=== PATIENT | male | born 1950 | race Asian ===

== ENCOUNTER 2016-08-16 09:05 | Outpatient (CLI) | payer BC | END 2016-08-16 23:59 | disposition home or self-care (01) | LOC: US 09:05 | PROVIDERS: ATTEND Internal Medicine Interventional Cardiology | DX: I71.4 Abdominal aortic aneurysm, without rupture (principal) | CPT/HCPCS: 76770-TC ==

== ENCOUNTER 2017-09-22 07:57 | Outpatient (CLI) | payer BC ==
[2017-09-22 08:59] LABS: BASOPHILS % (AUTO) 0.6 % (0.0-2.0); EOSINOPHILS % (AUTO) 5.1 % (0.0-6.0); HEMATOCRIT 39 % (39-51); HEMOGLOBIN 12.6 g/dL (13.5-17.5); LYMPHOCYTES # (AUTO) 2.1 /CMM (0.8-4.8); LYMPHOCYTES % (AUTO) 29.4 % (20.0-44.0); MEAN CORPUSCULAR HGB CONC 32 g/dl (31.0-36.0); MEAN CORPUSCULAR VOLUME 68 fL (80-96); MONOCYTES # (AUTO) 0.4 /CMM (0.1-1.30); MONOCYTES % (AUTO) 5.8 % (2.0-12.0); NEUTROPHILS # (AUTO) 4.3 /CMM (1.8-8.9); NEUTROPHILS % (AUTO) 59.1 % (43.0-81.0); PLATELET COUNT (AUTO) 269 /CMM (150-450); RDW COEFFICIENT OF VARIATION 16.7 (11.5-15.0); RED BLOOD CELL COUNT(AUTO) 5.78 MIL/uL (4.5-6.0); WHITE BLOOD COUNT (AUTO) 7.3 K/uL (4.3-11.0)
[2017-09-22 09:10] LABS: APPEARANCE,URINE CLEAR (CLEAR); BILIRUBIN,URINE NEGATIVE (NEGATIVE); BLOOD, URINE NEGATIVE Ery/uL (NEGATIVE); COLOR,URINE YELLOW (YELLOW); KETONES,URINE NEGATIVE (NEGATIVE); LEUKOCYTE ESTERASE ,URINE NEGATIVE (NEGATIVE); NITRITE, URINE NEGATIVE (NEGATIVE); PH,URINE 5.5 (5.0-8.0); PROTEIN,URINE NEGATIVE (NEGATIVE); UGLUCOSE NEGATIVE (NEGATIVE); UROBILINOGEN,URINE 0.2 EU/dL (0.2)
[2017-09-22 09:19] LABS: ALBUMIN 4.4 g/dL (3.4-5.0); BILIRUBIN,TOTAL 1.2 mg/dL (0.2-1.0); CALCIUM, SERUM 9.6 mg/dL (8.5-10.1); CREATININE 1.1 mg/dL (0.6-1.3); POTASSIUM 4.4 mmol/L (3.5-5.1); TOTAL PROTEIN, SERUM 8.1 g/dL (6.4-8.2)
[2017-09-22 09:25] LABS: THYROID STIMULATING HORMONE 1.957 uIU/mL (0.358-3.74); URIC ACID 8.3 mg/dL (2.6-7.2)
[2017-09-22 10:24] LABS: EOSINOPHILS % (MANUAL) 6 % (0-4); LYMPHOCYTES % (MANUAL) 17 % (16-48); MONOCYTES % (MANUAL) 9 % (0-11.0); NEUTROPHILS % (MANUAL) 68 (42-76)
== END 2017-09-22 23:59 | disposition home or self-care (01) ==
LOC: LAB 07:57
PROVIDERS: ATTEND Legal Medicine
DX: M17.0 Bilateral primary osteoarthritis of knee (principal); M85.88 Other specified disorders of bone density and structure, other site; R79.89 Other specified abnormal findings of blood chemistry
CPT/HCPCS: 36415; 73562; 80053-TC; 80061-TC; 81000-TC; 82306; 84402-TC; 84439-TC; 84443-TC; 84550-TC; 85025-TC

== ENCOUNTER 2017-10-01 07:29 | Outpatient (CLI) | payer BC ==
[2017-10-01 09:32] LABS: IRON, SERUM 53 ug/dl (50-175); TOTAL IRON BINDING CAPACITY 276 ug/dl (250-450)
[2017-10-01 09:43] LABS: FERRITIN 380 ng/mL (8-388)
== END 2017-10-01 23:59 | disposition home or self-care (01) ==
LOC: LAB 07:29
PROVIDERS: ATTEND Legal Medicine
DX: D64.9 Anemia, unspecified (principal)
CPT/HCPCS: 36415; 82728-TC; 82746; 83540-TC

== ENCOUNTER 2019-02-28 05:08 | Inpatient (IN) | payer BC ==
[2019-02-28] VITALS (28 sets, daily range): BP systolic 61–158; BP diastolic 26–97
[~2019-02-28] VITALS: Ht 170.2 cm; Wt 74.8 kg
[2019-02-28] MEDS ORDERED: IODIXANOL 150 ML IV ONE (05:35)
[2019-02-28] MEDS ORDERED: ASPI-1169 PO (05:37)
[2019-02-28] MEDS ORDERED: CARV3.12 PO (05:37)
[2019-02-28] MEDS ORDERED: LOSA25TA27 PO (05:38)
[2019-02-28 05:45] LABS: BASOPHILS # (AUTO) 0.1 /CMM (0.0-0.2); BASOPHILS % (AUTO) 2.4 % (0.0-2.0); EOSINOPHILS % (AUTO) 11.3 % (0.0-6.0); HEMATOCRIT 40 % (39-51); HEMOGLOBIN 12.7 g/dL (13.5-17.5); LYMPHOCYTES # (AUTO) 1.3 /CMM (0.8-4.8); LYMPHOCYTES % (AUTO) 22.4 % (20.0-44.0); MEAN CORPUSCULAR HGB CONC 32 g/dl (31.0-36.0); MEAN CORPUSCULAR VOLUME 68 fL (80-96); MONOCYTES # (AUTO) 0.5 /CMM (0.1-1.30); MONOCYTES % (AUTO) 8.1 % (2.0-12.0); NEUTROPHILS # (AUTO) 3.1 /CMM (1.8-8.9); NEUTROPHILS % (AUTO) 55.8 % (43.0-81.0); PLATELET COUNT (AUTO) 195 /CMM (150-450); RED BLOOD CELL COUNT(AUTO) 5.85 MIL/uL (4.5-6.0); WHITE BLOOD COUNT (AUTO) 5.6 K/uL (4.3-11.0)
[2019-02-28] MEDS ORDERED: IV NS 0.9% 1,000 ML ONE (05:47)
[2019-02-28] MEDS ORDERED: VERAPAMIL HCL IV 5 MG/2 ML VIAL ONE (05:48)
[2019-02-28] MEDS ORDERED: HEPARIN SODIUM, PORCINE 5000 UNITS/1 ML VIAL ONE ×2 (05:48→07:31)
[2019-02-28] MEDS ORDERED: NITROGLYCERIN ICAR 1,000 MCG/10 ML VIAL ICAR ONE (05:49)
[2019-02-28 05:53] LABS: CALCIUM, SERUM 8.4 mg/dL (8.5-10.1); POTASSIUM 3.8 mmol/L (3.5-5.1)
[2019-02-28 06:05] LABS: BAND % (MANUAL) 1 % (0.0-5.0); BASOPHILS % (MANUAL) 1 % (0.0-2.0); EOSINOPHILS % (MANUAL) 9 % (0-4); LYMPHOCYTES % (MANUAL) 23 % (16-48); MONOCYTES % (MANUAL) 8 % (0-11.0); NEUTROPHILS % (MANUAL) 58 (42-76)
[2019-02-28] MEDS ORDERED: FENTANYL PF 100MCG/2ML AMPUL ONE (06:58)
[2019-02-28] MEDS ORDERED: MIDAZOLAM HCL 2 MG/2ML VIAL ONE (06:58)
[2019-02-28] MEDS ORDERED: HEPARIN SODIUM, PORCINE 1,000 UNIT/ML VIAL ONE ×2 (06:59)
[2019-02-28] MEDS ORDERED: LIDOCAINE HCL/PF 1% 30 ML SDV ONE (07:03)
[2019-02-28] MEDS ORDERED: ATOR80TA PO (07:24)
--- NOTE | 2019-02-28 08:40 | NUR ---
ICU/SOLE FILLER NOTE RECEIVED PT FROM CARDIAC COILED TUBING SUPERVISOR. PT ALERT, AWAKE, FOLLOWS COMMANDS. TR BAND IN PLACE, 11 CC AIR IN BAND. PT SINUS ON TELE, ON ROOM AIR, NO DISTRESS NOTED. ALL ORDERS REVIEWED. PT PENDING TRANSFER TO [facility] FOR CABG. WILL CONTINUE TO MONITOR AND CARE.
[2019-02-28] MEDS ORDERED: METOPROLOL SUCCINATE 25 MG TAB.SR.24H PO SCH (09:00)
[2019-02-28] MEDS ORDERED: ASPIRIN 81 MG TAB.CHEW PO SCH (09:00)
--- NOTE | 2019-02-28 09:15 | NUR ---
ICU/RN: 3ML AIR REMOVED, NO S/S OF BLEEDING NOTED.
[2019-02-28] MEDS ORDERED: IV NS 0.9% 500 ML IV ONE (09:30)
--- NOTE | 2019-02-28 09:35 | NUR ---
ICU/RN: 3ML AIR REMOVED, NO S/S OF BLEEDING NOTED.
--- NOTE | 2019-02-28 10:30 | NUR ---
ICU/RN: 3ML AIR REMOVED, NO S/S OF BLEEDING NOTED.
--- NOTE | 2019-02-28 11:00 | NUR ---
ICU/RN: 2ML AIR REMOVED, NO S/S OF BLEEDING NOTED. WILL REMOVE TR BAND
--- NOTE | 2019-02-28 11:15 | NUR ---
ICU/RN: TR BAND REMOVED. NO S/S OF BLEEDING NOTED. CLEAR TAGADERM APPLIED. INSTRUCTED PT REGARDING AFTERCARE. ALL QUESTIONS ANSWERED. WILL CONTINUE TO MONITOR. PULSES PRESENT, PALPABLE AND EQUAL.
--- NOTE | 2019-02-28 16:30 | NUR ---
ICU/RN: REPORT ENDORSED TO JUSTIN REYNOSO IN [facility]. AMBULANCE AT BEDSIDE TO TRANSFER PT FOR CABG. EXIT CARE DONE. MRSA SWAB SENT TO LAB. ALL BELONGINGS CHECKED AND FORM SIGNED. SKIN INTACT, NO PHOTOS NEEDED. REPORT ENDORSED TO EMT. RIGHT WRIST ASSESSED, NO S/S OF BLEEDING NOTED. PULSES EQUAL AND PALPABLE. ALL QUESTIONS ANSWERED.
[2019-02-28] MEDS ORDERED: ATORVASTATIN 40 MG TABLET PO SCH (22:00)
== END 2019-02-28 18:28 | disposition short-term general hospital (02) | DRG 287 ==
LOC: CATHLAB 05:08 → ICU 09:24
PROVIDERS: ADMIT Legal Medicine; ATTEND Legal Medicine
DX: I25.10 Atherosclerotic heart disease of native coronary artery without angina pectoris (principal); I10 Essential (primary) hypertension; E78.5 Hyperlipidemia, unspecified; I25.2 Old myocardial infarction; Z98.61 Coronary angioplasty status
CPT/HCPCS: 36415; 80048-TC; 85025-TC; 85610-TC; 85730-TC; 87081-TC; 93452; C1887; G0378; J1644; J2250; J3010; J3490; Q9967

== ENCOUNTER 2019-05-30 09:23 | Outpatient (CLI) | payer BC ==
[~2019-05-30 09:23] MED LIST: ASPI-1169 PO; ATOR80TA PO; CARV3.12 PO; LOSA25TA27 PO
[2019-05-30 11:01] LABS: BASOPHILS # (AUTO) 0.1 /CMM (0.0-0.2); BASOPHILS % (AUTO) 1.9 % (0.0-2.0); EOSINOPHILS % (AUTO) 9.4 % (0.0-6.0); HEMATOCRIT 39 % (39-51); HEMOGLOBIN 12.1 g/dL (13.5-17.5); LYMPHOCYTES # (AUTO) 1.6 /CMM (0.8-4.8); LYMPHOCYTES % (AUTO) 28.5 % (20.0-44.0); MEAN CORPUSCULAR HGB CONC 31 g/dl (31.0-36.0); MEAN CORPUSCULAR VOLUME 67 fL (80-96); MONOCYTES # (AUTO) 0.5 /CMM (0.1-1.30); MONOCYTES % (AUTO) 9.4 % (2.0-12.0); NEUTROPHILS # (AUTO) 2.9 /CMM (1.8-8.9); NEUTROPHILS % (AUTO) 50.8 % (43.0-81.0); PLATELET COUNT (AUTO) 230 /CMM (150-450); RED BLOOD CELL COUNT(AUTO) 5.82 MIL/uL (4.5-6.0); WHITE BLOOD COUNT (AUTO) 5.7 K/uL (4.3-11.0)
[2019-05-30 11:07] LABS: ALBUMIN 3.8 g/dL (3.4-5.0); BILIRUBIN,TOTAL 0.9 mg/dL (0.2-1.0); CREATININE 1.3 mg/dL (0.6-1.3); POTASSIUM 4.2 mmol/L (3.5-5.1); TOTAL PROTEIN, SERUM 7.3 g/dL (6.4-8.2)
[2019-05-30 11:19] LABS: FREE T4 (FREE THYROXINE) 0.95 ng/dL (0.76-1.46); PROSTATE SPECIFIC ANTIGEN SCR 0.89 ng/mL (0.00-4.00); THYROID STIMULATING HORMONE 2.825 uIU/mL (0.358-3.74)
[2019-05-30 12:54] LABS: APPEARANCE,URINE CLEAR (CLEAR); BILIRUBIN,URINE NEGATIVE (NEGATIVE); BLOOD, URINE NEGATIVE Ery/uL (NEGATIVE); COLOR,URINE YELLOW (YELLOW); KETONES,URINE NEGATIVE (NEGATIVE); LEUKOCYTE ESTERASE ,URINE NEGATIVE (NEGATIVE); NITRITE, URINE NEGATIVE (NEGATIVE); PROTEIN,URINE NEGATIVE (NEGATIVE); UGLUCOSE NEGATIVE (NEGATIVE); UROBILINOGEN,URINE 0.2 EU/dL (0.2)
== END 2019-05-30 23:59 | disposition home or self-care (01) ==
LOC: LAB 09:23
PROVIDERS: ATTEND Legal Medicine
DX: I10 Essential (primary) hypertension (principal); E11.9 Type 2 diabetes mellitus without complications; I25.10 Atherosclerotic heart disease of native coronary artery without angina pectoris; E03.9 Hypothyroidism, unspecified; D64.9 Anemia, unspecified; E55.9 Vitamin D deficiency, unspecified
CPT/HCPCS: 36415; 80053-TC; 80061-TC; 81000-TC; 82306; 84153-TC; 84402; 84403; 84439-TC; 84443-TC; 85025-TC

== ENCOUNTER 2019-11-03 03:16 | Inpatient (IN) | payer BC ==
[~2019-11-03] VITALS: Ht 170.2 cm; Wt 72.6 kg
--- NOTE | 2019-11-03 03:20 | NUR ---
PT PRESENTED TO THE ER WITH A C/O CHEST PAIN. PT STATED THAT HIS BP WAS ELEVATED AT HOME AND FELT SHARP CHEST PAIN. PT TOOK HIS METROPOLOL AND STATED THAT THE CHEST PAIN RESOLVED BY THE TIME HE CAME TO THE ER. PT HAS HX OF ABLATION A FEW MONTHS AGO. PT IS AA&O X4. RESP ARE EVEN AND UNLABORED. PT IS ON THE MONITOR AND POX. WILL CONTINUE TO MONITOR THE PT.
[2019-11-03 03:36] LABS: BASOPHILS # (AUTO) 0.1 /CMM (0.0-0.2); BASOPHILS % (AUTO) 1.5 % (0.0-2.0); EOSINOPHILS % (AUTO) 6.6 % (0.0-6.0); HEMATOCRIT 42 % (39-51); HEMOGLOBIN 13.3 g/dL (13.5-17.5); LYMPHOCYTES # (AUTO) 1.8 /CMM (0.8-4.8); LYMPHOCYTES % (AUTO) 23.5 % (20.0-44.0); MEAN CORPUSCULAR HGB CONC 32 g/dl (31.0-36.0); MEAN CORPUSCULAR VOLUME 68 fL (80-96); MONOCYTES # (AUTO) 0.7 /CMM (0.1-1.30); MONOCYTES % (AUTO) 9.2 % (2.0-12.0); NEUTROPHILS # (AUTO) 4.5 /CMM (1.8-8.9); NEUTROPHILS % (AUTO) 59.2 % (43.0-81.0); PLATELET COUNT (AUTO) 203 /CMM (150-450); RED BLOOD CELL COUNT(AUTO) 6.14 MIL/uL (4.5-6.0); WHITE BLOOD COUNT (AUTO) 7.6 K/uL (4.3-11.0)
[2019-11-03 03:49] LABS: CALCIUM, SERUM 8.9 mg/dL (8.5-10.1); CARBON DIOXIDE 28 mmol/L (21-32); CHLORIDE 104 mmol/L (98-107); CREATININE 1.1 mg/dL (0.6-1.3); GLUCOSE 119 mg/dL (74-106); POTASSIUM 3.5 mmol/L (3.5-5.1); SODIUM SERUM 139 mmol/L (136-145); UREA NITROGEN, BLOOD 20 mg/dL (7-18)
[2019-11-03 04:01] LABS: ALANINE AMINOTRANSFERASE 20 U/L (12-78); ALBUMIN 4.1 g/dL (3.4-5.0); ALKALINE PHOSPHATASE 94 U/L (46-116); ASPARTATE AMINOTRANSFERASE 19 U/L (15-37); B-TYPE NATRIURETIC PEPTIDE 118 PG/ML (0-125); BILIRUBIN,TOTAL 1.1 mg/dL (0.2-1.0); TOTAL PROTEIN, SERUM 7.6 g/dL (6.4-8.2)
[2019-11-03 04:11] LABS: BILIRUBIN,DIRECT 0.3 mg/dL (0.0-0.2)
--- NOTE | 2019-11-03 04:19 | NUR ---
FULLER VIRUS SWAB CANCELLED BY . PT IS NOT SUSPECT FOR COVID 19. LAB NOTIFIED. NURSING INSTRUCTOR PSYCHIATRIC AIDE NOTIFIED.
[2019-11-03] MEDS ORDERED: CT SWABBABLE VALVE TRANS SET 1 EA INFUS.SET MC ONE ×2 (04:23→11:06)
[2019-11-03] MEDS ORDERED: IV NS 0.9% 250 ML IV ONE ×2 (04:23→11:06)
[2019-11-03] MEDS ORDERED: IOHEXOL-300 100 ML VIAL IV ONE (04:23)
--- NOTE | 2019-11-03 04:23 | NUR ---
PT IS GOING TO TELE 320-2.
[2019-11-03 04:26] LABS: D-DIMER 0.31 mg/L(FEU (0.17-0.50)
[2019-11-03] MEDS ORDERED: METO25TA4 PO (04:27)
[2019-11-03] MEDS ORDERED: ASPIRIN 325 MG TABLET PO ONE (04:30)
--- NOTE | 2019-11-03 04:34 | NUR ---
PT IS GOING TO CT VIA [facility].
--- NOTE | 2019-11-03 04:46 | NUR ---
REPORT TO ANGELES ANTHONY
[2019-11-03] MEDS ORDERED: ASPIRIN 325 MG TABLET ONE (04:54)
--- NOTE | 2019-11-03 05:00 | NUR ---
ADMISSION PACKET PROVIDED TO ELECTRICAL PROSPECTING OBSERVER.
[2019-11-03] MEDS ORDERED: MAG HYDROX/AL HYDROX/SIMETH 30 ML UDC PO PRN (05:30)
[2019-11-03] MEDS ORDERED: MAGNESIUM HYDROXIDE 30 ML UDC PO PRN (05:30)
[2019-11-03] MEDS ORDERED: Z GUARD REMEDY 2 OZ OINT TP PRN (05:30)
[2019-11-03] MEDS ORDERED: MORPHINE SULFATE INJ 2 MG/ML DISP.SYRIN IV PRN (05:30)
[2019-11-03] MEDS ORDERED: ACETAMINOPHEN 325 MG TABLET PO PRN (05:30)
[2019-11-03] MEDS ORDERED: ZOLPIDEM TARTRATE 5 MG TABLET PO PRN (05:30)
[2019-11-03] MEDS ORDERED: ONDANSETRON HCL/PF 4 MG/2 ML VIAL IVP PRN (05:30)
[2019-11-03 06:00] VITALS: BP 149/98
--- NOTE | 2019-11-03 06:33 | NUR ---
DRAWER UPFITTER RECEIVE PT VIA [facility] FROM [facility] AT 0600 ADMIT TO TELE UNIT PT A/O X 4, NO CHEST PAIN AT THIS TIME. CARDIAC MONITORING SR 57 HR IN TELE MONITOR IN STABLE CONDITION NO S/S OF DISTRESS KEPT CLEAN, DRY AND COMFORTABLE, ALL NEEDS ATTENDED AND ANTICIPATED, SAFETY MEASURES IN PLACE WILL ENDORSE TO NEXT SHIFT POC.
--- NOTE | 2019-11-03 07:42 | NUR ---
MS/RN Opening note Patient received from shift lab technician. A/O X4, vital signs stable, denies any further chest pain or discomfort. Tele reading normal sinus rhythm. Heplock to left AC flushing well with normal saline, no resistance felt. All questions and concerns addressed. Safety measures in place, bed in low setting, brakes locked. Call light within reach, will continue to monitor and ensure safety.
[2019-11-03 07:50] VITALS: BP 127/83
[2019-11-03 08:00] VITALS: BP 127/83
[2019-11-03] MEDS: PANTOPRAZOLE 40 MG TABLET.DR PO SCH (08:04)
[2019-11-03] MEDS: ASPIRIN 81 MG TAB.CHEW PO SCH (08:05)
[2019-11-03] MEDS ORDERED: ASPI-1152 PO (08:09)
--- NOTE | 2019-11-03 08:09 | NUR ---
MS/RN S/B Amandeep Meléndez NP Seen by FORMATION FRACTURING OPERATOR - CTCA to be ordered, if negative may be discharged home later today.
[2019-11-03] MEDS ORDERED: IV NS 0.9% 1,000 ML IV PRN (08:18)
--- NOTE | 2019-11-03 08:22 | NUR ---
MS/RN S/B Dr Martines Seen by MD - for CT angio this morning. IV fluids ordered.
[2019-11-03] MEDS ORDERED: ASPIRIN EC 81 MG TABLET.DR PO SCH (09:00)
[2019-11-03] MEDS: ATORVASTATIN 40 MG TABLET PO SCH (09:15)
[2019-11-03] MEDS: METOPROLOL SUCCINATE 25 MG TAB.SR.24H PO SCH ×2 (09:16→17:05)
[2019-11-03] MEDS ORDERED: NITROGLYCERIN 0.4 MG/TAB BOTTLE SL PRN (11:00)
[2019-11-03] MEDS ORDERED: METOPROLOL TARTRATE INJ 5 MG/5 ML AMPUL IVP PRN (11:00)
[2019-11-03] MEDS ORDERED: IOHEXOL-350 100 ML VIAL IV ONE (11:06)
--- NOTE | 2019-11-03 11:24 | NUR ---
MS/RN CTCA Patient off unit at th is time for CTCA.
--- NOTE | 2019-11-03 11:27 | NUR ---
MS/RN Anti coagulant CERTIFIED ENERGY MANAGER made aware that no order entered for anti coagulant, VTE score 2, patient has SCD.
--- NOTE | 2019-11-03 13:00 | NUR ---
MS/RN Back to room Patient back in room following CTCA.
[2019-11-03 16:00] VITALS: BP 117/70
--- NOTE | 2019-11-03 17:28 | NUR ---
MS/RN CTCA result CTCA resulted: -Total calcium score 601 -Right coronary artery with focal severe 70% stenosis -LAD: segmental occlision of the mid LAD measuring 1.5cm in length with reconstitution of flow distally.
--- NOTE | 2019-11-03 17:30 | NUR ---
MS/RN Results Patient's primary doctor made aware of CTCA results.
--- NOTE | 2019-11-03 18:20 | NUR ---
MS/RN End note Patient remians in stable condition, continues to deny any chest pain or discomfort. Vital signs stable, no fevers or hypertension. All questions and concerns addressed, will endorse to hourly shift manager.
--- NOTE | 2019-11-03 19:22 | NUR ---
MS RN RECEIVE PT IN BED A/O X 3, IN STABLE, NO S/S OF DISTRESS, SAFETY MEASURES AT ALL TIMES. WILL CONT TO MONITOR
--- NOTE | 2019-11-03 19:30 | NUR ---
MS RN PT REFUSED IV FLUID. DESPITE EXPLAINING RISKS AND BENEFITS OFFERED 3 TIMES PT STILL REFUSED.
[2019-11-03 20:00] VITALS: BP 129/90
--- NOTE | 2019-11-04 05:21 | NUR ---
MS RN PT NO C/O CHEST PAIN, PT STABLE AND NOT IN DISTRESS, SLEPT WELL, KEPT CLEAN, DRY AND COMFORT AT ALL TIMES. ALL NEEDS ATTENDED AND ANTICIPATED, SAFETY MEASURES AT ALL TIMES. WILL ENDORSE TO NEXT SHIFT
--- NOTE | 2019-11-04 06:20 | NUR ---
MS RN PT STILL REFUSED IV FLUID. DESPITE EXPLAINING RISKS AND BENEFITS OFFERED 3 TIMES PT STILL REFUSED.
[2019-11-04 06:36] LABS: BASOPHILS # (AUTO) 0.1 /CMM (0.0-0.2); BASOPHILS % (AUTO) 1.4 % (0.0-2.0); EOSINOPHILS % (AUTO) 7.6 % (0.0-6.0); HEMATOCRIT 41 % (39-51); HEMOGLOBIN 13.1 g/dL (13.5-17.5); LYMPHOCYTES # (AUTO) 1.3 /CMM (0.8-4.8); LYMPHOCYTES % (AUTO) 20.2 % (20.0-44.0); MEAN CORPUSCULAR HGB CONC 32 g/dl (31.0-36.0); MEAN CORPUSCULAR VOLUME 67 fL (80-96); MONOCYTES # (AUTO) 0.5 /CMM (0.1-1.30); MONOCYTES % (AUTO) 8.1 % (2.0-12.0); NEUTROPHILS # (AUTO) 4.1 /CMM (1.8-8.9); NEUTROPHILS % (AUTO) 62.7 % (43.0-81.0); PLATELET COUNT (AUTO) 184 /CMM (150-450); RED BLOOD CELL COUNT(AUTO) 6.01 MIL/uL (4.5-6.0); WHITE BLOOD COUNT (AUTO) 6.5 K/uL (4.3-11.0)
[2019-11-04 06:38] LABS: CALCIUM, SERUM 8.8 mg/dL (8.5-10.1); CREATININE 1.1 mg/dL (0.6-1.3); PHOSPHORUS 3.2 mg/dL (2.5-4.9); POTASSIUM 3.7 mmol/L (3.5-5.1)
[2019-11-04 08:21] VITALS: BP 123/83
[2019-11-04] MEDS: ASPIRIN 81 MG TAB.CHEW PO SCH (09:14)
[2019-11-04 09:15] VITALS: BP 127/86
[2019-11-04] MEDS: PANTOPRAZOLE 40 MG TABLET.DR PO SCH (09:15)
[2019-11-04] MEDS: METOPROLOL SUCCINATE 25 MG TAB.SR.24H PO SCH (09:15)
[2019-11-04] MEDS: ATORVASTATIN 40 MG TABLET PO SCH (09:15)
--- NOTE | 2019-11-04 11:41 | NUR ---
Discharge Note Pt discharged home. VSS, breathing even/unlabored, denies pain at time of d/c. IV Access/ID removed. Discharge teaching performed, with pt verbalizing understanding. Pt instructed to f/u with md and teletype adjuster within one week. Belongings and d/c instructions signed, copied, [id number] in chart. Pt left hospital in private vehicle with family.
== END 2019-11-04 11:40 | disposition home or self-care (01) | DRG 303 ==
LOC: ER 03:19 → TELE 05:08 → MED 16:43
PROVIDERS: ADMIT Nurse Practitioner Acute Care; ATTEND Nurse Practitioner Acute Care
DX: I25.10 Atherosclerotic heart disease of native coronary artery without angina pectoris (principal); I10 Essential (primary) hypertension; E78.5 Hyperlipidemia, unspecified; Z95.5 Presence of coronary angioplasty implant and graft; Z95.1 Presence of aortocoronary bypass graft; Z87.891 Personal history of nicotine dependence; R91.1 Solitary pulmonary nodule; E55.9 Vitamin D deficiency, unspecified; R79.89 Other specified abnormal findings of blood chemistry
CPT/HCPCS: 36415; 71045-TC; 75574; 80048-TC; 80061-TC; 80076-TC; 83735-TC; 83880; 84100-TC; 84484-TC; 85025-TC; 85378-TC; 85730-TC; 87081-TC; 93307-TC; G0378; J7030; J7050; Q9967

== ENCOUNTER 2020-06-23 08:13 | Outpatient (CLI) | payer BC ==
[~2020-06-23 08:13] MED LIST changes: -ASPI-1169 PO; +ASPI-1420 PO; -CARV3.12 PO; -LOSA25TA27 PO; +METO25TA4 PO
[2020-06-23 09:12] LABS: BASOPHILS # (AUTO) 0.1 /CMM (0.0-0.2); BASOPHILS % (AUTO) 1.4 % (0.0-2.0); EOSINOPHILS % (AUTO) 6.8 % (0.0-6.0); HEMATOCRIT 43 % (39-51); HEMOGLOBIN 13.4 g/dL (13.5-17.5); LYMPHOCYTES # (AUTO) 1.6 /CMM (0.8-4.8); LYMPHOCYTES % (AUTO) 29.7 % (20.0-44.0); MEAN CORPUSCULAR HGB CONC 31 g/dl (31.0-36.0); MEAN CORPUSCULAR VOLUME 68 fL (80-96); MONOCYTES # (AUTO) 0.4 /CMM (0.1-1.30); NEUTROPHILS # (AUTO) 2.9 /CMM (1.8-8.9); NEUTROPHILS % (AUTO) 54.1 % (43.0-81.0); PLATELET COUNT (AUTO) 181 /CMM (150-450); RED BLOOD CELL COUNT(AUTO) 6.24 MIL/uL (4.5-6.0); WHITE BLOOD COUNT (AUTO) 5.3 K/uL (4.3-11.0)
[2020-06-23 09:39] LABS: CALCIUM, SERUM 8.8 mg/dL (8.5-10.1); POTASSIUM 4.3 mmol/L (3.5-5.1); TOTAL PROTEIN, SERUM 7.8 g/dL (6.4-8.2)
[2020-06-23 09:43] LABS: THYROID STIMULATING HORMONE 1.541 uIU/mL (0.358-3.74)
== END 2020-06-23 23:59 | disposition home or self-care (01) ==
LOC: LAB 08:13
PROVIDERS: ATTEND Internal Medicine Interventional Cardiology
DX: I10 Essential (primary) hypertension (principal); R53.83 Other fatigue
CPT/HCPCS: 36415; 80053-TC; 80061-TC; 84443-TC; 85025-TC

== ENCOUNTER 2020-07-28 07:58 | Outpatient (CLI) | payer BC ==
[2020-07-28 08:35] LABS: BASOPHILS # (AUTO) 0.1 /CMM (0.0-0.2); BASOPHILS % (AUTO) 1.5 % (0.0-2.0); EOSINOPHILS % (AUTO) 7.7 % (0.0-6.0); HEMATOCRIT 45 % (39-51); HEMOGLOBIN 13.9 g/dL (13.5-17.5); MEAN CORPUSCULAR HGB CONC 31 g/dl (31.0-36.0); MEAN CORPUSCULAR VOLUME 67 fL (80-96); MONOCYTES # (AUTO) 0.5 /CMM (0.1-1.30); MONOCYTES % (AUTO) 8.6 % (2.0-12.0); NEUTROPHILS # (AUTO) 2.5 /CMM (1.8-8.9); NEUTROPHILS % (AUTO) 45.2 % (43.0-81.0); PLATELET COUNT (AUTO) 184 /CMM (150-450); RED BLOOD CELL COUNT(AUTO) 6.63 MIL/uL (4.5-6.0); WHITE BLOOD COUNT (AUTO) 5.4 K/uL (4.3-11.0)
[2020-07-28 08:54] LABS: BILIRUBIN,URINE NEGATIVE (NEGATIVE); COLOR,URINE YELLOW (YELLOW); LEUKOCYTE ESTERASE ,URINE NEGATIVE (NEGATIVE); NITRITE, URINE NEGATIVE (NEGATIVE); PH,URINE 5.5 (5.0-8.0); PROTEIN,URINE NEGATIVE (NEGATIVE); UGLUCOSE NEGATIVE (NEGATIVE); UROBILINOGEN,URINE 0.2 EU/dL (0.2)
[2020-07-28 09:32] LABS: THYROID STIMULATING HORMONE 1.632 uIU/mL (0.358-3.74); URIC ACID 7.8 mg/dL (2.6-7.2)
[2020-07-28 09:40] LABS: ALBUMIN 4.2 g/dL (3.4-5.0); CALCIUM, SERUM 9.7 mg/dL (8.5-10.1); POTASSIUM 4.2 mmol/L (3.5-5.1); TOTAL PROTEIN, SERUM 8.2 g/dL (6.4-8.2)
[2020-07-28 11:42] LABS: EOSINOPHILS % (MANUAL) 7 % (0-4); LYMPHOCYTES % (MANUAL) 12 % (16-48); MONOCYTES % (MANUAL) 7 % (0-11.0); NEUTROPHILS % (MANUAL) 51 (42-76); REACTIVE LYMPHOCYTES 23 % (0-0)
== END 2020-07-28 23:59 | disposition home or self-care (01) ==
LOC: LAB 07:58
PROVIDERS: ATTEND Legal Medicine
DX: I10 Essential (primary) hypertension (principal); E11.9 Type 2 diabetes mellitus without complications; E78.00 Pure hypercholesterolemia, unspecified; E03.9 Hypothyroidism, unspecified; E55.9 Vitamin D deficiency, unspecified; D64.9 Anemia, unspecified; Z00.00 Encounter for general adult medical examination without abnormal findings
CPT/HCPCS: 36415; 80053-TC; 80061-TC; 82306; 82728-TC; 83540-TC; 84439-TC; 84443-TC; 84550-TC; 85025-TC

== ENCOUNTER 2021-12-02 13:25 | Outpatient (CLI) | payer MEDICARE, OTHER ==
[2021-12-02 14:15] LABS: BILIRUBIN,URINE NEGATIVE (NEGATIVE); COLOR,URINE YELLOW (YELLOW); LEUKOCYTE ESTERASE ,URINE NEGATIVE (NEGATIVE); NITRITE, URINE NEGATIVE (NEGATIVE); PH,URINE 5.5 (5.0-8.0); PROTEIN,URINE NEGATIVE (NEGATIVE); UGLUCOSE NEGATIVE (NEGATIVE); UROBILINOGEN,URINE 0.2 EU/dL (0.2)
[2021-12-02 14:36] LABS: BASOPHILS # (AUTO) 0.1 K/uL (0.0-0.2); BASOPHILS % (AUTO) 1.5 % (0.0-2.0); EOSINOPHILS % (AUTO) 4.9 % (0.0-6.0); HEMATOCRIT 38 % (39-51); HEMOGLOBIN 12.1 g/dL (13.5-17.5); LYMPHOCYTES # (AUTO) 1.9 K/uL (0.8-4.8); LYMPHOCYTES % (AUTO) 27.3 % (20.0-44.0); MEAN CORPUSCULAR HGB CONC 32 g/dl (31.0-36.0); MEAN CORPUSCULAR VOLUME 68 fL (80-96); MONOCYTES # (AUTO) 0.6 K/uL (0.1-1.30); NEUTROPHILS # (AUTO) 4.1 K/uL (1.8-8.9); NEUTROPHILS % (AUTO) 57.3 % (43.0-81.0); PLATELET COUNT (AUTO) 178 K/uL (150-450); RED BLOOD CELL COUNT(AUTO) 5.59 MIL/uL (4.5-6.0); WHITE BLOOD COUNT (AUTO) 7.1 K/uL (4.3-11.0)
[2021-12-02 15:48] LABS: FREE T4 (FREE THYROXINE) 0.92 ng/dL (0.76-1.46); PROSTATE SPECIFIC ANTIGEN SCR 0.93 ng/mL (0.00-4.00); THYROID STIMULATING HORMONE 1.934 uIU/mL (0.358-3.74); URIC ACID 7.7 mg/dL (2.6-7.2)
[2021-12-02 15:54] LABS: ALBUMIN 3.9 g/dL (3.4-5.0); BILIRUBIN,TOTAL 1.1 mg/dL (0.2-1.0); CALCIUM, SERUM 8.8 mg/dL (8.5-10.1); CREATININE 1.4 mg/dL (0.6-1.3); POTASSIUM 3.8 mmol/L (3.5-5.1); TOTAL PROTEIN, SERUM 7.8 g/dL (6.4-8.2)
== END 2021-12-02 23:59 | disposition home or self-care (01) ==
LOC: LAB 13:25
PROVIDERS: ATTEND Legal Medicine
DX: E11.9 Type 2 diabetes mellitus without complications (principal); Z00.00 Encounter for general adult medical examination without abnormal findings; N40.0 Benign prostatic hyperplasia without lower urinary tract symptoms; E55.9 Vitamin D deficiency, unspecified; E78.00 Pure hypercholesterolemia, unspecified; E03.9 Hypothyroidism, unspecified; D64.9 Anemia, unspecified
CPT/HCPCS: 36415; 80053-TC; 80061-TC; 82306; 82607-TC; 82728-TC; 83540-TC; 84153-TC; 84402; 84403; 84439-TC; 84443-TC; 84550-TC; 85025-TC; 87086-TC